=== PATIENT | female | born 1965 | race Caucasian/White ===

== ENCOUNTER → 2020-03-31 09:59 | Outpatient (CLI) | payer SELFPAY ==
--- NOTE | ~2020-03-31 | XR_ITS ---
EXAMINATION: XR chest 2V EXAM DATE: 03/31/2020 10:25 INDICATION: non prod cough mid chest pain non smoker. TECHNIQUE: Frontal and lateral projections of the chest obtained and reviewed. There is no prior susana dy for comparison. FINDINGS: The lungs are clear. There are no pleural effusions. The cardiomediastinal silhouette is within normal limits. There is no pneumothorax suspected. The bones and soft tissues are unremarkab le. IMPRESSION: Normal chest x-ray exam. Reviewed, dictated and finalized at location A. IOLOGY TEACHER IMPRESSION: Normal chest x-ray exam.
== END ==
PROVIDERS: PCP Chiropractor; Visit Provider Chiropractor
DX: R07.89 Other chest pain (principal)
CPT/HCPCS: 71046

== ENCOUNTER 2020-04-15 14:45 | Emergency (ER) | payer SELFPAY ==
--- NOTE | ~2020-04-15 | XR_ITS ---
EXAMINATION: XR chest 2V DATE: 04/15/2020 15:13 INDICATION: Shortness of breath. Chest pressure. TECHNIQUE: Frontal and lateral views of the chest were obtained. COMPARISON: Chest 2 views 03/31/2020 FINDINGS: The chest demonstrates clear lungs without pneumonia, pleural effusion, or pneumothorax. Th e heart size is normal. IMPRESSION: 1. No acute cardiopulmonary disease. Reviewed, dictated and finalized at location A. SYSTEM OPERATOR
--- NOTE | 2020-04-15 14:49 | ED.SOB ---
HPI - SOB/Dyspnea General Chief Complaint: Upper Respiratory Infection Stated Complaint: Low oxygen level Time Seen by Provider: 04/15/20 15:04 Source: patient and RN notes reviewed Mode of arrival: ambulatory Limitations: no limitations History of Present Illness HPI Narrative: 54-year-old female presents with concern for continuing cough, low oxygen levels. Reports she was at the physical therapist yesterday, felt winded after her walk in from the parking lot and when they took her vital signs her oxygen was at 83, and stayed there for several minutes. Reports she began having symptoms at the beginning of March with fatigue, developed into cough, body aches, nasal congestion. Reports she had a telehealth visit and was ordered a chest x-ray which was normal. Reports she was given steroids for 3 days and albuterol inhaler which she finished. She reports some improvement, she was beginning to return to normal activities when 2 days ago she began to feel return of shortness of breath, cough, fatigue. Reports she had a negative Covid test 2 weeks ago. MD elicited complaint: cough Related Data Home Medications Medication Instructions Recorded Confirmed albuterol sulfate 2 inh INHALATION DIRECTED 04/15/20 04/15/20 progesterone micronized 200 mg PO DAILY 04/15/20 04/15/20 Allergies Allergy/AdvReac Type Severity Reaction Status Date / Time No Known Allergies Allergy Uncoded 02/10/19 07:27 Review of Systems Review of Systems: Narrative: CONSTITUTIONAL: Denies malaise, chills, sweats, or fever. Reports fatigue EYES: Denies visual changes, redness, or discharge. ENT: Reports rhinorrhea, congestion. Denies sinus pain, otalgia and sore throat. CARDIOVASCULAR: Denies chest pain, palpitations, or edema. RESPIRATORY: Reports cough, dyspnea. GASTROINTESTINAL: Denies abdominal pain, nausea, vomiting, diarrhea SKIN: Denies rash or itching. MUSCULOSKELETAL: Denies myalgia. NEUROLOGIC: Reports headache. All systems reviewed & are unremarkable except as noted in HPI and below PMFSH Comments At time of signature, agree with nursing past medical, surgical, social and family history. There is no relevant family history pertinent to the presenting complaint Exam Narrative: Exam Narrative: GENERAL: Well-appearing, well-nourished, and in no acute distress. HEAD: Normocephalic EYES: PERRLA, conjunctivae clear ENT: Nares clear, turbinates erythematous, clear discharge. Mucous membranes moist. TM pearly issa with dull light reflex bilaterally; no tragal tenderness. Oropharynx not erythematous without lesions. Tonsils not enlarged and without exudate, no drooling, no hoarseness, no trismus, uvula midline. NECK: Supple. No lymphadenopathy CHEST: Scattered rhonchi, breath sounds equal. No wheezing, rales, or stridor. No respiratory distress, becomes mildly short of breath after speaking at length. HEART: Regular rate and rhythm. No murmur heard. SKIN: Warm, dry, no rash. NEURO: Alert and oriented x3. PSYCH: Normal mood and affect Course Course Emergency Course: Patient is aware of diagnosis, understands and agrees to treatment plan. Anticipatory guidance given. Patient agrees to follow-up as directed and is aware of reasons to seek care at the emergency department. Portions of this record may have been created with voice recognition software Vital Signs Vital signs: Vital Signs Temperature 99.1 F 04/15/20 14:51 Pulse Rate 94 04/15/20 14:51 Respiratory Rate 20 04/15/20 14:51 Blood Pressure 143/80 H 04/15/20 14:51 Pulse Oximetry 95 04/15/20 14:51 Temperature 99.1 F 04/15/20 14:51 Pulse Rate 94 04/15/20 14:51 Respiratory Rate 20 04/15/20 14:51 Blood Pressure 143/80 H 04/15/20 14:51 Pulse Oximetry 95 04/15/20 14:51 Reviewed. Patient has been instructed to follow up with her primary care provider within the next week regarding her elevated blood pressure today. MDM - SOB/Dyspnea MDM Narrative Medical
[2020-04-15 14:51] VITALS: BP 143/80; PULSE 94; RESP 20; TEMP 37.3; O2SAT 95
== END 2020-04-15 15:39 | disposition home or self-care (01) ==
PROVIDERS: Emergency Provider Nurse Practitioner; PCP Chiropractor
DX: R06.89 Other abnormalities of breathing (principal)
CPT/HCPCS: 71046; 99213; G0463

== ENCOUNTER 2020-04-23 06:57 | Outpatient (NON) | payer SELFPAY ==
[2020-04-23 18:46] LABS: SARS-CoV-2 RNA PCR Negative
== END 2020-04-23 06:58 ==
PROVIDERS: Visit Provider Chiropractor
DX: Z20.828 Contact with and (suspected) exposure to other viral communicable diseases (principal); R05 Cough
CPT/HCPCS: 87635; C9803; U0003

== ENCOUNTER 2020-08-23 12:55 | Outpatient (CLI) | payer OTHER, SELFPAY ==
--- NOTE | ~2020-08-23 | CT_ITS ---
EXAMINATION: CT diagnostic chest w con DATE: 08/23/2020 14:13 INDICATION: Shortness of breath, history of COVID 19 TECHNIQUE: Transaxial computed tomographic images of the chest were obtained after the administration of 75 cc of Omnipaque 350 intravenous contrast. The dose-length product (DLP) was 162.55 mGy-cm. Ite rative reconstruction was used. COMPARISON: None FINDINGS: There is a 5 mm nodule of the lingula on image 82. A 3 mm nodule is present in the left low er lobe on the same image. There is a 5 mm subpleural nodule of the left lower lobe on image 91. Scar ring is noted in the lung apices. No focal airspace opacities are identified. There is no pleural eff usion or pneumothorax. No pathologically enlarged thoracic lymph nodes are identified. The heart size is normal. There is a 1.8 cm cyst in the left hepatic lobe. Mild thoracic spondylosis is noted. IMPRESSION: 1. Left lung nodules measuring up to 5 mm, likely old granulomatous disease. If the patient has no ri sk factors for malignancy, no further follow up is required. If there are risk factors for malignanc y (i.e., history of smoking, asbestos or radiation exposure), consider followup CT in 12 months. Reviewed, dictated and finalized at location B. IMPRESSION: 1. Left lung nodules measuring up to 5 mm, likely old granulomatous disease. If the patient has no risk factors for malignancy, no further follow up is requir ed. If there are risk factors for malignancy (i.e., history of smoking, asbest os or radiation exposure), consider followup CT in 12 months.
--- NOTE | 2020-08-23 16:04 | WPDPFTINT ---
PFT Interpretation This is a pulmonary function test with spirometry, plethysmography and diffusing capacity. The test was performed and results interpreted in accordance with the 2019 and 2005 ATS/ERS Task Force guidelines respectively using the Global Lung Function Initiative-2012 reference equations. Patient demonstrated good effort and cooperation. Reproducibility criteria were met. The quality of the spirometry maneuver was Grade A. Findings: Spirometry: The contour of the inspiratory and expiratory flow tracing are normal. The FVC is 3.04 L, 90% predicted. The FEV1 is 2.34 L, 86% predicted. The FEV1: FVC ratio 77%. Plethysmography: The total lung capacity is 4.95 L, 97% predicted. The functional residual capacity is 3.17 L, 111% predicted. The residual volume is 1.91 L, 103% predicted. Diffusing capacity: The absolute diffusion capacity is 8.3, 37% predicted. The diffusing capacity corrected for alveolar volume is 2.11, 46% predicted. Impression: The spirometry is normal without evidence of an obstructive abnormality. The lung volumes are normal. The absolute diffusing capacity is severely decreased and remains moderately decreased when corrected for alveolar volume. There are no prior studies for comparison PFT Procedure Performed PFT Procedure Performed Plethysmography (Lung Vol) Diffusing Cap (DLCO) Spirometry w/o Bronchodil
== END 2020-08-23 12:56 | disposition home or self-care (01) ==
LOC: ANHPFT 12:56
PROVIDERS: PCP Chiropractor; Visit Provider Nurse Practitioner
DX: U07.1 COVID-19 (principal); J98.4 Other disorders of lung
CPT/HCPCS: 71260; 94060; 94726; 94729; Q9967

== ENCOUNTER → 2021-02-28 15:36 | Outpatient (CLI) | payer OTHER, SELFPAY ==
--- NOTE | ~2021-02-28 | MM_ITS ---
EXAMINATION: MM screening lolis BI w rehana HISTORY: Screening mammogram TECHNIQUE: Craniocaudal and mediolateral oblique 3-D tomosynthesis images were obtained and synthetic 2-D images were generated. CAD analysis was submitted and interpreted. COMPARISON: 04/2018, 07/08/2013 bilateral digital screening mammogram examinations BREAST PARENCHYMAL COMPOSITION: The breasts are almost entirely fatty. FINDINGS: There is no evidence of suspicious mass, calcification, or architectural distortion to sugg est malignancy in either breast. There has been no suspicious interval change. IMPRESSION: 1. No mammographic evidence of malignancy. 2. Recommend routine screening mammography in one year. BI-RADS Category 1: Negative Reviewed, dictated and finalized at location A.
== END ==
PROVIDERS: Visit Provider Chiropractor
DX: Z12.31 Encounter for screening mammogram for malignant neoplasm of breast (principal)
CPT/HCPCS: 77063; 77067

== ENCOUNTER 2022-01-26 16:14 | Outpatient (CLI) | payer OTHER, SELFPAY ==
--- NOTE | ~2022-01-26 | XR_ITS ---
XR lumbar spine 2-3V DATE: 01/26/2022 16:33 INDICATION: Low back pain TECHNIQUE: AP, lateral, coned lateral lumbosacral views COMPARISON: None FINDINGS: Included lower thoracic and lumbar pedicles are intact. No fracture or bone destruction. No spondylolisthesis. Lumbar and lower cervical interspaces are relatively preserved. The sacroiliac isaak ints are intact. IMPRESSION: No significant abnormality Reviewed, dictated and finalized at location A. IMPRESSION: No significant abnormality
== END 2022-01-26 16:15 | disposition home or self-care (01) ==
PROVIDERS: PCP Family Medicine; Visit Provider Family Medicine
DX: M54.50 Low back pain, unspecified (principal)
CPT/HCPCS: 72100

== ENCOUNTER → 2022-11-21 15:51 | Outpatient (CLI) | payer OTHER, SELFPAY ==
--- NOTE | ~2022-11-21 | MM_ITS ---
EXAMINATION: MM screening lolis BI w rehana HISTORY: Screening mammogram TECHNIQUE: Craniocaudal and mediolateral oblique 3-D tomosynthesis images were obtained and synthetic 2-D images were generated. CAD analysis was submitted and interpreted. COMPARISON: 02/28/2021, 04/20/2018 BREAST PARENCHYMAL COMPOSITION: The breasts are almost entirely fatty. FINDINGS: There is no evidence of suspicious mass, calcification, or architectural distortion to sugg est malignancy in either breast. There has been no suspicious interval change. IMPRESSION: 1. No mammographic evidence of malignancy. 2. Recommend routine screening mammography in one year. BI-RADS Category 1: Negative Reviewed, dictated and finalized at location A.
== END ==
PROVIDERS: PCP Family Medicine; Visit Provider Family Medicine
DX: Z12.31 Encounter for screening mammogram for malignant neoplasm of breast (principal)
CPT/HCPCS: 77063; 77067

== ENCOUNTER → 2023-01-02 07:49 | Outpatient (CLI) | payer OTHER, SELFPAY ==
--- NOTE | ~2023-01-02 | MMUS_ITS ---
EXAMINATION: MM diagnostic lolis RT w rehana, US breast RT limited HISTORY: Right palpable breast lump, posterior upper inner quadrant TECHNIQUE: ML, MLO and CC 3-D tomosynthesis images of the right breast were performed and synthetic 2 -D images were generated. CAD analysis was submitted and interpreted. High resolution targeted right breast ultrasound examination at the area of clinical complaint at 1:00 12 cm from nipple was perform ed. COMPARISON: 11/21/2022, 02/28/2021 bilateral screening mammogram examinations BREAST PARENCHYMAL COMPOSITION: The breasts are almost entirely fatty. FINDINGS: MAMMOGRAPHIC FINDINGS: No suspicious mass, architectural distortion, malignant calcification, skin thickening or retraction of the right breast is detected. The area of clinical complaint was marked; there is underlying adipo se tissue, with no evidence of soft tissue mass, architectural distortion or abnormal calcification ULTRASOUND: Real-time imaging area of clinical complaint at 1:00 12 cm from the nipple reveals no suspicious mass or shadowing, cyst or other significant sonographic abnormality. IMPRESSION: 1. No mammographic evidence of malignancy 2. Routine annual mammographic screening is recommended BI-RADS Category 1: Negative Reviewed, dictated and finalized at location A. IMPRESSION: 1. No mammographic evidence of malignancy 2. Routine annual mammographic screening is recommended BI-RADS Category 1: Negative
== END ==
PROVIDERS: PCP Family Medicine; Visit Provider Family Medicine
DX: N63.12 Unspecified lump in the right breast, upper inner quadrant (principal)
CPT/HCPCS: 76642; 77061; 77065; G0279